=== PATIENT | male | born 1985 | race Two or more races ===

== ENCOUNTER 2018-03-18 14:40 | Outpatient (CLI) | payer OTHER | END 2018-03-18 14:51 | disposition home or self-care (01) | LOC: LAB 14:40 | DX: K21.9 Gastro-esophageal reflux disease without esophagitis (principal); K30 Functional dyspepsia; R10.30 Lower abdominal pain, unspecified ==

== ENCOUNTER 2018-03-22 09:09 | Outpatient (CLI) | payer OTHER | END 2018-03-22 09:18 | disposition home or self-care (01) | LOC: TOM 09:09 | DX: K21.9 Gastro-esophageal reflux disease without esophagitis (principal); K30 Functional dyspepsia; R10.30 Lower abdominal pain, unspecified ==

== ENCOUNTER 2018-07-01 09:34 | Outpatient (CLI) | payer OTHER | END 2018-07-01 09:45 | disposition home or self-care (01) | LOC: MRI 09:34 | DX: M23.221 Derangement of posterior horn of medial meniscus due to old tear or injury, right knee (principal) | CPT/HCPCS: 73718 ==

== ENCOUNTER 2022-06-03 17:00 | Emergency (ER) | payer OTHER ==
[~2022-06-03] VITALS: Ht 190.5 cm; Wt 81.6 kg
== END 2022-06-03 21:14 | disposition home or self-care (01) ==
LOC: ER 17:00
DX: N50.811 Right testicular pain (principal)

== ENCOUNTER 2022-10-27 21:54 | Outpatient (CLI) | payer OTHER | END 2022-10-27 23:00 | disposition home or self-care (01) | LOC: LAB 21:54 | DX: Z20.828 Contact with and (suspected) exposure to other viral communicable diseases (principal); Z20.818 Contact with and (suspected) exposure to other bacterial communicable diseases ==